=== PATIENT | female | born 1975 | race Caucasian/White ===

== ENCOUNTER → 2018-02-20 | Outpatient (CLI) | payer OTHER | LOC: BMCIMAGING 16:30 | PROVIDERS: ATTEND Internal Medicine Rheumatology | DX: M25.812 Other specified joint disorders, left shoulder (principal); M89.8X8 Other specified disorders of bone, other site; M22.2X1 Patellofemoral disorders, right knee; M22.2X2 Patellofemoral disorders, left knee ==

== ENCOUNTER → 2018-08-04 | Outpatient (CLI) | payer OTHER | LOC: BMCIMAGING 16:51 | PROVIDERS: ATTEND Internal Medicine Rheumatology | DX: M46.92 Unspecified inflammatory spondylopathy, cervical region (principal) ==

== ENCOUNTER → 2018-08-04 | Outpatient (CLI) | payer OTHER | LOC: BMCIMAGING 15:32 | PROVIDERS: ATTEND Otolaryngology | DX: R05 Cough (principal) ==